=== PATIENT | female | born 1975 | race Caucasian/White ===

== ENCOUNTER 2016-12-08 00:22 | Emergency (ER) | payer OTHER ==
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
--- NOTE | 2016-12-08 04:00 | Cat Scan Report ---
FINAL REPORT PROCEDURE: CT HEAD/BRAIN WO CON TECHNIQUE: Computerized tomography of the head was performed without contrast material. HISTORY: headache COMPARISON: No prior studies are available for comparison. FINDINGS: Skull and scalp: Normal. Paranasal sinuses: Normal. Ventricles and subarachnoid spaces: Normal. Cerebrum: No evidence of hemorrhage, acute infarction or mass . Cerebellum and brainstem: No evidence of hemorrhage, acute infarction or mass. Vasculature: Normal. Comments: None. IMPRESSION: There is no evidence of an acute intracranial process
[2016-12-08] MEDS ORDERED: CATAPRES PO ONE (08:52)
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
[2016-12-08] MEDS ORDERED: ZESTRIL PO ONE (09:05)
[2016-12-08] MEDS ORDERED: NORCO 5/325 PO ONE (09:05)
[2016-12-08] MEDS ORDERED: HCTZ PO ONE (09:05)
[2016-12-08] MEDS ORDERED: FLEXERIL PO ONE (09:05)
[2016-12-08 12:34] VITALS: BP 126/88
== END 2016-12-08 12:38 | disposition home or self-care (01) ==
LOC: ED 00:22
DX: M25.511 Pain in right shoulder (principal); I10 Essential (primary) hypertension; V49.49XA Driver injured in collision with other motor vehicles in traffic accident, initial encounter; Y93.9 Activity, unspecified; Y92.9 Unspecified place or not applicable; Y99.9 Unspecified external cause status
CPT/HCPCS: 70450; 81025; 93005; 93010